=== PATIENT | female | born 1960 | race Caucasian/White ===

== ENCOUNTER → 2016-10-07 | Outpatient (CLI) | payer BC ==
--- NOTE | ~2016-10-07 | CR63 ---
[facility] A Service of [facility] RADIOLOGY TEXT RESULTS PATIENT: ROSEANNA KELLY LOCATION: [facility] : 64 UNIT #: [id number] AGE: [address]: NINA GRIMM APRN SEX: F ORDER DR: [id number] [address] [address] [id number] O MR#: [id number] Acc #: [id number] NAME: ROSEANNA KELLY : 1960 SEX: F STUDY DATE/TIME: 10/07/2016 10:11 UNIT: [facility] ROOM: STUDY DESCRIPTION: CR Chest 2 View Attending Physician: Denise Grimm Aprn Referring Physician: Denise Grimm Aprn Ordering Physician: Denise Grimm Aprn Primary Care Physician: No Primary Care Physician MEDICAL IMAGING REPORT This report is preliminary unless electronic signature is present. EXAM 2-view chest 10/07/2016 HISTORY 55-year-old female with cough, wheezing, and chest congestion for 6 weeks. COMPARISON None FINDINGS 2 views of the chest demonstrate clear lungs. No pleural effusion or pneumothorax. Heart size and mediastinum are normal. Pulmonary vasculature normal. IMPRESSION No acute cardiopulmonary findings. Dictated by... Alejandro Oleary M.D. THIS IS AN ELECTRONICALLY VERIFIED REPORT Alejandro Oleary M.D. at 10/07/2016 6:38 PM SAM/shayne TD: 10/07/2016 18:29 JOB #: [id number] MEDICAL IMAGING REPORT Page 1 of 1
== END | disposition home or self-care (01) ==
LOC: SRAD 10:03
DX: R05 Cough (principal); R06.2 Wheezing
CPT/HCPCS: 71020